=== PATIENT | female | born 1985 | race Caucasian/White ===

== ENCOUNTER 2020-06-19 08:31 | Emergency (ER) | payer SELFPAY ==
[2020-06-19] MEDS ORDERED: MORPHINE 4 MG/ML SYR ONE (08:59)
[2020-06-19] MEDS ORDERED: NA CHLORIDE 0.9% 1,000 ML ONE (08:59)
[2020-06-19] MEDS ORDERED: PROMETHAZINE INJ 25 MG/ML AMP ONE (08:59)
[2020-06-19 09:09] LABS: Absolute Lymphocytes (CBC) 2.1 K/uL (0.7-4.9); Basophils % 0.7 % (0-1.3); Hematocrit 39.6 % (36.0-45.0); Lymphocytes % 12.9 % (15.3-44.8); MPV 9.5 fL (7.6-11.3); RBC Red Blood Cell Count 4.43 M/uL (3.86-4.86)
[2020-06-19 09:14] LABS: Albumin 3.9 g/dL (3.4-5.0); Bilirubin Direct 0.1 mg/dL (0-0.2); Bilirubin Total 0.5 mg/dL (0.2-1.0); Potassium 3.7 mmol/L (3.5-5.1); Protein, Total 8.3 g/dL (6.4-8.2)
--- NOTE | 2020-06-19 10:05 | RAD REPORT ---
EXAM DESCRIPTION: CT - Abdomen Pelvis W Contrast - 06/19/2020 9:50 am CLINICAL HISTORY: ABD PAIN COMPARISON: CT imaging September 2017 TECHNIQUE: Biphasic, helical CT imaging of the abdomen and pelvis was performed following 100 ml non -ionic IV contrast. No oral contrast All CT scans are performed using dose optimization technique as appropriate and may include automated exposure control or mA/KV adjustment according to patient size. FINDINGS: No suspicious findings in the lung bases. The liver, spleen, and pancreas show no suspicious findings. Gallbladder and biliary tree are also wi thout suspicious finding. Symmetric renal function is seen with no hydronephrosis or suspicious renal mass. No pyelonephritis o r acute parenchymal process. No bladder abnormalities. No adrenal abnormalities. No dilated bowel loops or bowel wall thickening. No suspicion for appendicitis. No free air, free flu id or inflammatory stranding. No hernia, mass or bulky lymphadenopathy. Uterus and ovaries show no s uspicious findings. Stool fills but does not dilate the rectum and distal sigmoid colon. No suspicious bony findings. IMPRESSION: Contrast enhanced CT abdomen and pelvis showing no acute or emergent finding.
[2020-06-19] MEDS ORDERED: ONDANSETRON 4 MG/2 ML VIAL ONE (10:06)
--- NOTE | 2020-06-19 10:39 | EDPHYS ---
Physician Documentation [facility] [place] Name: Shagufta Burrows Age: 34 yrs Sex: Female : 1985 Arrival Date: 06/19/2020 Time: 08:32 Bed 19 Private MD: ED Physician Juancarlos Novak HPI: 06/19 08:53 This 34 yrs old Female presents to ER via Ambulatory with complaints of pm1 Abdominal Pain, Nausea/Vomiting. 08:53 The patient presents with abdominal pain in the left upper quadrant. Onset: The pm1 symptoms/episode began/occurred this morning, at 04:00. The symptoms do not radiate. Associated signs and symptoms: Pertinent positives: nausea and vomiting, Pertinent negatives: chest pain, diarrhea, shortness of breath. The symptoms are described as crampy. Modifying factors: The symptoms are alleviated by nothing, the symptoms are aggravated by nothing. believes that it was his cooking that is causing her to vomit. He did not cook the chicken well last night and did not check the temperature. His son had some vomiting also. Historical: - Allergies: 08:42 Tramadol HCl (rash, Hives); iw 08:42 Latex, Natural Rubber; iw - Home Meds: 08:42 None [Active]; iw - PMHx: 08:42 Anxiety; Depression; iw - PSHx: 08:42 Tubal ligation; Appendectomy; iw - Immunization history:: Adult Immunizations up to date. - Social history:: Smoking status: Patient denies any tobacco usage or history of. ROS: 08:53 Constitutional: Negative for fever, chills, and weight loss, Cardiovascular: Negative pm1 for chest pain, palpitations, and edema, Respiratory: Negative for shortness of breath, cough, wheezing, and pleuritic chest pain. 08:53 Back: Negative for injury and pain, MS/Extremity: Negative for injury and deformity, Skin: Negative for injury, rash, and discoloration, Neuro: Negative for headache, weakness, numbness, tingling, and seizure. 08:53 Abdomen/GI: Positive for abdominal pain, nausea and vomiting, Negative for diarrhea. Exam: 08:53 Constitutional: This is a well developed, well nourished patient who is awake, alert, pm1 and in no acute distress. Head/Face: Normocephalic, atraumatic. 08:53 Back: No spinal tenderness. No costovertebral tenderness. Full range of motion. Skin: Warm, dry with normal turgor. Normal color with no rashes, no lesions, and no evidence of cellulitis. MS/ Extremity: Pulses equal, no cyanosis. Neurovascular intact. Full, normal range of motion. 08:53 Cardiovascular: Exam negative for acute changes, Rate: normal, Rhythm: regular, Pulses: no pulse deficits are appreciated. 08:53 Respiratory: Exam negative for acute changes, respiratory distress, shortness of breath. 08:53 Abdomen/GI: Inspection: abdomen appears normal, Palpation: soft, in all quadrants, mild abdominal tenderness, in the left upper quadrant. 08:53 Neuro: Exam negative for acute changes, Orientation: is normal, Mentation: is normal, Motor: is normal, moves all fours. Vital Signs: 08:40 Pulse 82; Resp 18 S; Pulse Ox 98% on R/A; Weight 81.65 kg; Height 5 ft. 4 in. (162.56 iw cm); Pain 10/10; 08:57 BP 152 / 98; Pulse 73; Resp 16; Pulse Ox 100% ; bp 10:09 BP 130 / 83; Pulse 64; Resp 16; Pulse Ox 95% ; bp 10:56 BP 140 / 96; Pulse 67; Resp 17; Temp 97.9; Pulse Ox 100% ; bp 08:40 Body Mass Index 30.90 (81.65 kg, 162.56 cm) iw MDM: 08:39 Patient medically screened. pm1 10:36 ED course: Patient passed PO challenge with antiemetics given in the ER. Patient pm1 negative CT. Impression is food poisoning from improperly cooked chicken. 10:36 Data interpreted: Pulse oximetry: on room air is 100 %. Interpretation: normal. pm1 Counseling: I had a detailed discussion with the patient and/or guardian regarding: the historical points, exam findings, and any diagnostic results supporting the discharge/admit diagnosis, lab results, radiology results, the need for outpatient follow up, to return to the emergency department if symptoms worsen or persist or if there are any questions or concerns that arise at home. 16:50 Data reviewed: vital signs. pm1 06/19 08:45 Order name: Basic Metabolic Panel pm1 06/19 08:45 Order name: CBC with Diff pm1 06/19 08:45 Order name: Hepatic Function pm1 06/19 08:45 Order name: Lipase pm1 06/19 09:14 Order name: Basic Metabolic Panel; Complete Time: 09:18 EDMS 06/19 09:14 Order name: Liver (Hepatic) Function; Complete Time: 09:18 EDMS 06/19 08:45 Order name: CT Abd/Pelvis - IV Contrast Only pm1 06/19 09:14 Order name: Lipase; Complete Time: 09:18 EDMS 06/19 09:27 Order name: CBC with Automated Diff; Complete Time: 09:41 EDMS 06/19 10:06 Order name: CT; Complete Time: 10:17 EDMS 06/19 10:13 Order name: Urine Dipstick--Ancillary (enter results) 06/19 10:13 Order name: Urine --Ancillary (enter results) 06/19 10:55 Order name: Urine --Ancillary; Complete Time: 13:45 EDMS 06/19 10:55 Order name: Urine Dipstick-Ancillary; Complete Time: 13:45 EDMS 06/19 08:45 Order name: IV Saline Lock; Complete Time: 08:47 pm1 06/19 08:45 Order name: Labs collected and sent; Complete Time: 08:48 pm1 06/19 08:45 Order name: Urine Dipstick-Ancillary (obtain specimen); Complete Time: 10:09 pm1 06/19 08:45 Order name: Urine Test (obtain specimen); Complete Time: 10:09 pm1 Administered Medications: 08:45 Drug: Phenergan 12.5 mg Route: IVP; Site: left antecubital; bp 10:59 Follow up: Response: Nausea is decreased bp 08:45 Drug: morphine 4 mg Route: IVP; Site: left antecubital; bp 10:59 Follow up: Response: Pain is decreased bp 08:45 Drug: NS 0.9% 1000 ml Route: IV; Rate: 1000 ml; Site: left antecubital; bp 10:58 Follow up: IV Status: Completed infusion; IV Intake: 1000ml bp 08:45 Drug: Phenergan 12.5 mg Route: IVP; Site: left antecubital; bp 10:58 Follow up: Response: Nausea is decreased bp 09:52 Drug: Zofran (Ondansetron) 4 mg Route: IVP; Site: right antecubital; bp 10:58 Follow up: Response: Nausea is decreased bp Disposition: 14:54 Co-signature as Attending Physician, Juancarlos Novak MD I agree with the assessment and kdr plan of care. Disposition: 06/19/20 10:38 Discharged to Home. Impression: Nausea and vomiting, Unspecified abdominal pain. - Condition is Stable. - Discharge Instructions: Abdominal Pain, Adult, Food Poisoning, Nausea and Vomiting, Adult. - Prescriptions for Zofran ODT 4 mg Oral tablet,disintegrating - place 1 tablet by TRANSLINGUAL route every 8 hours As needed; 12 tablet. Bentyl 20 mg Oral Tablet - take 1 tablet by ORAL route every 6 hours As needed; 20 tablet. Phenergan 25 mg Rectal Suppository - insert 1 suppository by RECTAL route every 6 hours As needed; 12 suppository. - Medication Reconciliation Form, Thank You Letter, Antibiotic Education, Prescription Opioid Use form. - Follow up: Emergency Department; When: As needed; Reason: Worsening of condition. Follow up: Private Physician; When: 2 - 3 days; Reason: Recheck today's complaints, Continuance of care, Re-evaluation by your physician. - Problem is new. - Symptoms have improved. Signatures: Dispatcher [employer] EDMS Juancarlos Novak MD MD kdr Kassidy Candelaria RN RN iw Luis De Leon, [employer] PATENTS EXAMINER pm1 Teo Summers RN RN bp Corrections: (The following items were deleted from the chart) 10:59 10:38 06/19/2020 10:38 Discharged to Home. Impression: Nausea and vomitingUnspecified bp abdominal pain. Condition is Stable. Forms are Medication Reconciliation Form, Thank You Letter, Antibiotic Education, Prescription Opioid Use. Follow up: Emergency Department; When: As needed; Reason: Worsening of condition. Follow up: Private Physician; When: 2 - 3 days; Reason: Recheck today's complaints, Continuance of care, Re-evaluation by your physician. Problem is new. Symptoms have improved. pm1
--- NOTE | 2020-06-19 10:39 | ER ---
Nurse's Notes [facility] Name: Shagufta Burrows Age: 34 yrs Sex: Female : 1985 Arrival Date: 06/19/2020 Time: 08:32 Bed 19 Private MD: Diagnosis: Unspecified abdominal pain;Nausea and vomiting Presentation: 06/19 08:40 Chief complaint: Patient states: upper abd pain and vomiting since this morning 0400, iw think s she ate some bad chicken. Coronavirus screen: vomiting. Ebola Screen: Patient negative for fever greater than or equal to 101.5 degrees Fahrenheit, and additional compatible Ebola Virus Disease symptoms Patient denies exposure to infectious person. Patient denies travel to an Ebola-affected area in the 21 days before illness onset. No symptoms or risks identified at this time. Initial Sepsis Screen: Does the patient meet any 2 criteria? No. Patient's initial sepsis screen is negative. Does the patient have a suspected source of infection? No. Patient's initial sepsis screen is negative. Risk Assessment: Do you want to hurt yourself or someone else? Patient reports no desire to harm self or others. Onset of symptoms was June 19, 2020. 08:40 Method Of Arrival: Ambulatory iw 08:40 Acuity: DULCE 3 iw Triage Assessment: 08:40 General: Appears distressed, uncomfortable, Behavior is cooperative, appropriate for bp age, agitated, anxious. Pain: Complains of pain in abdomen. EENT: No deficits noted. Neuro: No deficits noted. Cardiovascular: No deficits noted. Respiratory: No deficits noted. GI: Abdomen is non-distended, Pt is actively vomiting bile. : No signs and/or symptoms were reported regarding the genitourinary system. Derm: No deficits noted. Musculoskeletal: No deficits noted. Historical: - Allergies: 08:42 Tramadol HCl (rash, Hives); iw 08:42 Latex, Natural Rubber; iw - Home Meds: 08:42 None [Active]; iw - PMHx: 08:42 Anxiety; Depression; iw - PSHx: 08:42 Tubal ligation; Appendectomy; iw - Immunization history:: Adult Immunizations up to date. - Social history:: Smoking status: Patient denies any tobacco usage or history of. Screenin:40 Abuse screen: Denies threats or abuse. Denies injuries from another. Nutritional bp screening: No deficits noted. Tuberculosis screening: No symptoms or risk factors identified. Fall Risk None identified. Assessment: 08:40 General: SEE TRIAGE NOTE. bp 10:00 GI: Bowel sounds present X 4 quads. Abd is soft X 4 quads. bp 10:09 Reassessment: PT RETURNED FROM CT. ALL CURRENT ORDERS COMPLETED. bp 10:56 Reassessment: PT D/C HOME VIA W/C WITH FAMILY, DX WITH NAUSEA AND VOMITING. bp Vital Signs: 08:40 Pulse 82; Resp 18 S; Pulse Ox 98% on R/A; Weight 81.65 kg; Height 5 ft. 4 in. (162.56 iw cm); Pain 10/10; 08:57 BP 152 / 98; Pulse 73; Resp 16; Pulse Ox 100% ; bp 10:09 BP 130 / 83; Pulse 64; Resp 16; Pulse Ox 95% ; bp 10:56 BP 140 / 96; Pulse 67; Resp 17; Temp 97.9; Pulse Ox 100% ; bp 08:40 Body Mass Index 30.90 (81.65 kg, 162.56 cm) iw ED Course: 08:32 Patient arrived in ED. ds1 08:39 Luis De Leon NP is PHCP. pm1 08:39 Juancarlos Novak MD is Attending Physician. pm1 08:40 Patient has correct armband on for positive identification. Bed in low position. Call bp light in reach. Side rails up X2. Adult w/ patient. 08:41 Triage completed. iw 08:47 Inserted saline lock: 20 gauge in left forearm, using aseptic technique. Blood mt collected. 08:51 Teo Summers, KUSUM is Primary Nurse. bp 09:44 Inserted saline lock: 20 gauge in right antecubital area, using aseptic technique. mt Blood collected. multicut line operator called to notify patient L Forearm IV hurt with contrast but still flushed well. 10:57 No provider procedures requiring assistance completed. IV discontinued, intact, bp bleeding controlled, No redness/swelling at site. Pressure dressing applied. Administered Medications: 08:45 Drug: Phenergan 12.5 mg Route: IVP; Site: left antecubital; bp 10:59 Follow up: Response: Nausea is decreased bp 08:45 Drug: morphine 4 mg Route: IVP; Site: left antecubital; bp 10:59 Follow up: Response: Pain is decreased bp 08:45 Drug: NS 0.9% 1000 ml Route: IV; Rate: 1000 ml; Site: left antecubital; bp 10:58 Follow up: IV Status: Completed infusion; IV Intake: 1000ml bp 08:45 Drug: Phenergan 12.5 mg Route: IVP; Site: left antecubital; bp 10:58 Follow up: Response: Nausea is decreased bp 09:52 Drug: Zofran (Ondansetron) 4 mg Route: IVP; Site: right antecubital; bp 10:58 Follow up: Response: Nausea is decreased bp Intake: 10:58 IV: 1000ml; Total: 1000ml. bp Outcome: 10:38 Discharge ordered by MD. pm1 10:57 Discharged to home via wheelchair, with family. bp 10:57 Condition: stable 10:57 Discharge instructions given to patient, Instructed on discharge instructions, follow up and referral plans. medication usage, Demonstrated understanding of instructions, follow-up care, medications, Prescriptions given X 3. 10:59 Patient left the ED. bp Signatures: Crissy Herrera ds1 Kassidy Candelaria, KUSUM RN iw Luis De Leon, [employer] SUPERVISOR pm1 Donna Puga mt, Brian, RN RN bp
[2020-06-19 10:55] LABS: Urine Blood 3+ (NEG); Urine Glucose NEGATIVE (NEG); Urine Protein NEGATIVE (NEG); Urine pH 8.5 (5.0-7.0)
[2020-06-19 11:18] VITALS: BP 140/96; TEMP 97.9; O2SAT 100
== END 2020-06-19 10:59 | disposition home or self-care (01) ==
LOC: ER 08:31
DX: R11.2 Nausea with vomiting, unspecified (principal); Z88.5 Allergy status to narcotic agent; Z91.040 Latex allergy status; Z91.048 Other nonmedicinal substance allergy status
CPT/HCPCS: 36415; 74177; 80048; 80076; 81003; 81025; 83690; 85025; 99284; J2405; J2550; J7030; Q9967